=== PATIENT | female | born 1955 | race Asian ===

== ENCOUNTER 2016-11-18 18:54 | Emergency (ER) | payer OTHER, MEDICAID ==
[~2016-11-18] VITALS: Ht 152.4 cm; Wt 59.0 kg
[2016-11-18 18:54] VITALS: BP_SYST 159
--- NOTE | 2016-11-18 19:00 | NUR ---
Placed in room 4 . Placed on cardiac cath lab radiology technologist, blood pressure machine and pulse oximeter. To gown for exam. Side rails up.
--- NOTE | 2016-11-18 19:10 | NUR ---
Report given to Chaparro LEUNG
--- NOTE | 2016-11-18 19:30 | NUR ---
Note panchoroxane in ED - 11/18/16 at 2135 by TRAVIS [email or web address]. c/o abdominal pain 10/10 in pain scale. states int is her gallstones that hurts. states she had having pain since 2 weeks ago. she also had been having chills, fever,nausea and vomiting.
--- NOTE | 2016-11-18 19:30 | NUR ---
aaoxr. denies pain. complains of itchy red rashes all over body. states it startes on tuesday 2 days ago when she at chicken. claims she is not allergic to chicken but notes it just happened that way. on room air. pox 99%.
--- NOTE | 2016-11-18 19:55 | NUR ---
Monika langley in ED - 11/18/16 at 2135 by SDCCUDL HAILEY Acosta at bedside examining patient.
--- NOTE | 2016-11-18 20:30 | NUR ---
ER at bedside examining patient.
[2016-11-18] MEDS ORDERED: NACL 0.9% 1,000 ML IV ONE (20:41)
[2016-11-18] MEDS ORDERED: DIPHENHYDRAMINE INJ 50 MG/ML VIAL IVP ONE (20:45)
[2016-11-18] MEDS ORDERED: methylPREDNISolone SOD SUCC/PF 62.5 MG/ML VIAL IVP ONE (20:45)
[2016-11-18] MEDS ORDERED: FAMOTIDINE PF 20 MG/2 ML VIAL IVP ONE (20:45)
--- NOTE | 2016-11-18 21:00 | NUR ---
medications given earlier as charted. kayleigh well. son and daughter at bedside. resting. no distress.
--- NOTE | 2016-11-18 22:50 | NUR ---
Patient given written and verbal discharge instructions and verbalizes understanding. ER MD Dr Davidson discussed with patient the results and treatment provided. Patient in stable condition. ID arm band removed. IV catheter removed intact and dressing applied, no active bleeding. Rx of prednisone given. Opportunity for questions provided and answered.
[2016-11-18 23:29] VITALS: BP_SYST 120
== END 2016-11-18 23:29 | disposition home or self-care (01) ==
LOC: SED 18:54
DX: T78.40XA Allergy, unspecified, initial encounter (principal); I10 Essential (primary) hypertension; R21 Rash and other nonspecific skin eruption; R06.02 Shortness of breath; X58.XXXA Exposure to other specified factors, initial encounter
CPT/HCPCS: 36415; 84443; 96374; 96375; 99284; J1200; J2930; J3490; J7030